=== PATIENT | female | born 1995 | race Caucasian/White ===

== ENCOUNTER 2018-11-02 04:29 | Emergency (ER) | payer BC, OTHER ==
--- NOTE | 2018-11-02 04:57 | ERPHSYRPT ---
- History of Present Illness Time Seen by Provider: 11/02/18 04:51 Source: patient, family Exam Limitations: no limitations Patient Subjective Stated Complaint: pt is alert and oriented. pt is ambulatory with a steady gait. pt comes in with c/o vomiting x2 since 329. pt is 14 weeks and states that she hasn't had any morning sickness for two weeks. this is the pt's first . pt denies bleeding, or abnormal vaginal discharge. pt states she did have abd pain earlier but hadn't had a bm in a couple days and drank and ensure and was able to have bm. pt skin pwd. pt breathing easily on the bed. pt does not appear to be in any disteress. Triage Nursing Assessment: see above Physician History: pt had morning sickness with vomiting today and mild pain after which resolved - nontender now no discharge, no further pain Timing/Duration: today Severity: mild Associated Symptoms: nausea, vomiting Allergies/Adverse Reactions: No Known Drug Allergies Allergy (Unverified 11/02/18 04:47) Home Medications: Metronidazole 500 mg [Flagyl 500 MG] 500 mg PO BID 11/02/18 [History] Vits W-Ca,Fe,FA(<1Mg) [] 1 tablet PO DAILY 11/02/18 [History] Immunizations Up to Date: Yes - Review of Systems Constitutional: No Fever, No Chills Eyes: No Symptoms Ears, Nose, & Throat: No Symptoms Respiratory: No Cough, No Dyspnea Cardiac: No Chest Pain, No Edema, No Syncope Abdominal/Gastrointestinal: Nausea, Vomiting, Other (brief pain resolved), No Diarrhea Genitourinary Symptoms: No Dysuria Musculoskeletal: No Back Pain, No Neck Pain Skin: No Rash Neurological: No Dizziness, No Focal Weakness, No Sensory Changes Psychological: No Symptoms Endocrine: No Symptoms Hematologic/Lymphatic: No Symptoms Immunological/Allergic: No Symptoms All Other Systems: Reviewed and Negative - Past Medical History Pertinent Past Medical History: Yes Neurological History: No Pertinent History, Epilepsy Cardiac History: No Pertinent History Respiratory History: No Pertinent History Endocrine Medical History: No Pertinent History Musculoskeletal History: No Pertinent History GI Medical History: Gallbladder Disease History: No Pertinent History Psycho-Social History: No Pertinent History Female Reproductive Disorders: No Pertinent History - Past Surgical History Past Surgical History: Yes Gastrointestinal: Cholecystectomy Other Surgical History: nose surgery - Social History Smoking Status: Never smoker Exposure to second hand smoke: No Drug Use: none - Female History Hx Now: Yes - Nursing Vital Signs Nursing Vital Signs: Initial Vital Signs Pulse Rate 63 11/02/18 04:38 Respiratory Rate 16 11/02/18 04:38 Blood Pressure 130/70 11/02/18 04:38 O2 Sat by Pulse Oximetry 99 11/02/18 04:38 - Physical Exam General Appearance: no apparent distress, alert Eye Exam: PERRL/EOMI, eyes nml inspection Ears, Nose, Throat Exam: normal ENT inspection, TMs normal, pharynx normal, moist mucous membranes Neck Exam: normal inspection, non-tender, supple, full range of motion Respiratory Exam: normal breath sounds, lungs clear, No respiratory distress Cardiovascular Exam: regular rate/rhythm, normal heart sounds, normal peripheral pulses Gastrointestinal/Abdomen Exam: soft, normal bowel sounds, No tenderness, No mass Back Exam: normal inspection, normal range of motion, No CVA tenderness, No vertebral tenderness Extremity Exam: normal inspection, normal range of motion, pelvis stable Neurologic Exam: alert, oriented x 3, cooperative, normal mood/affect, nml cerebellar function, nml station & gait, sensation nml, No motor deficits Skin Exam: normal color, warm, dry, No rash Lymphatic Exam: No adenopathy SpO2: 99 - Course Nursing assessment & vital signs reviewed: Yes Ordered Tests: Active Orders 24 hr Category Date Time Status Heart Tones-ED STAT Care 11/02/18 04:58 Active IV Insertion STAT Care 11/02/18 04:58 Active IV Insertion STAT Care 11/02/18 04:58 Active AMYLASE Stat Lab 11/02/18 05:00 Completed CBC W DIFF Stat Lab 11/02/18 05:00 Completed CMP Stat Lab 11/02/18 05:00 Completed HCG, Quantitative (Inhouse) Stat Lab 11/02/18 05:00 Completed LIPASE Stat Lab 11/02/18 05:00 Completed Lactic Acid Stat Lab 11/02/18 05:43 Completed UA W/RFX UR CULTURE Stat Lab 11/02/18 04:58 Ordered Medication Summary Discontinued Medications Generic Name Dose Route Start Last Admin Trade Name Freq PRN Reason Stop Dose Admin Sodium Chloride 1,000 mls @ 999 mls/hr 11/02/18 04:58 11/02/18 05:07 Sodium Chloride 0.9% 1000 Ml IV 11/02/18 05:58 999 mls/hr .Q1H1M STA Administration Sodium Chloride Confirm 11/02/18 05:03 Sodium Chloride 0.9% 1000 Ml Administered 11/02/18 05:04 Dose 1,000 mls @ ud .ROUTE .STK-MED ONE Ondansetron HCl 4 mg 11/02/18 05:01 11/02/18 05:13 Zofran 4 Mg/2 Ml Vial IV 11/02/18 05:02 4 mg STAT ONE Administration Ondansetron HCl Confirm 11/02/18 05:10 Zofran 4 Mg/2 Ml Vial Administered 11/02/18 05:11 Dose 4 mg .ROUTE .STK-MED ONE Lab/Rad Data: Laboratory Result Diagrams 11/02/18 05:00 11/02/18 05:00 Laboratory Results 11/02/18 11/02/18 11/02/18 Range/Units 05:43 05:00 05:00 WBC 15.3 H (4.0-10.5) K/mm3 RBC 4.37 (4.1-5.4) M/mm3 Hgb 13.3 (12.0-16.0) gm/dl Hct 38.8 (35-47) % MCV 88.8 (78-100) fl MCH 30.4 (26-32) pg MCHC 34.3 (32-36) g/dl RDW 12.9 (11.5-14.0) % Plt Count 316 (150-450) K/mm3 MPV 11.2 H (6-9.5) fl Gran % 83.6 H (36.0-66.0) % Eos # (Auto) 0.06 (0-0.5) Absolute Lymphs (auto) 1.38 (1.0-4.6) Absolute Monos (auto) 1.05 (0.0-1.3) Lymphocytes % 9.0 L (24.0-44.0) % Monocytes % 6.9 (0.0-12.0) % Eosinophils % 0.4 (0.00-5.0) % Basophils % 0.1 (0.0-0.4) % Absolute Granulocytes 12.76 H (1.4-6.9) Basophils # 0.01 (0-0.4) Sodium 138 (137-145) mmol/L Potassium 3.9 (3.5-5.1) mmol/L Chloride 105 (98-107) mmol/L Carbon Dioxide 23 (22-30) mmol/L Anion Gap 14.3 (5-15) MEQ/L BUN 4 L (7-17) mg/dL Creatinine 0.32 L (0.52-1.04) mg/dL Estimated GFR > 60.0 ML/MIN Glucose 82 (74-106) mg/dL Lactic Acid 1.3 (0.4-2.0) Calcium 9.3 (8.4-10.2) mg/dL Total Bilirubin 0.40 (0.2-1.3) mg/dL AST 64 H (14-36) U/L ALT 117 H (0-35) U/L Alkaline Phosphatase 71 (38-126) U/L Serum Total Protein 7.4 (6.3-8.2) g/dL Albumin 4.1 (3.5-5.0) g/dL Amylase 59 (30-110) U/L Lipase 22 L (23-300) U/L Beta HCG, Quant > 17228 mIU/ml - Progress Progress: improved, re-examined Progress Note: 11/02/18 06:26 FHT 163 11/02/18 06:33 pt symptoms have resolved - no abd pain or fever or signs of infection - discussed elevated wbc and liver tests with pt and she prefers DC with outpt f/ u with PCP rather than further obs or w/u in hosp - abd remains nontender. Counseled pt/family regarding: lab results, diagnosis, need for follow-up - Departure Departure Disposition: Home Clinical Impression: Hyperemesis arising during Condition: Good Critical Care Time: No Referrals: BRANDY DEMARCO [Primary Care Provider] - Instructions: Hyperemesis Gravidarum Additional Instructions: followup with your dr this week for elevated wbc and liver tests and return meantime if further problems vomiting, abdominal pain , fever, bleeding or other concerns. Prescriptions: Doxylamine Succinate/Vit B6 [Hallie Santamaria 10-10 mg Tablet] 2 each PO HS #14 tablet.
[2018-11-02] MEDS ORDERED: Sodium Chloride 0.9% 1000 ML 1,000 ML ONE (05:03)
[2018-11-02] MEDS: Sodium Chloride 0.9% 1000 ML 1,000 ML IV STA (05:07)
[2018-11-02] MEDS ORDERED: Zofran 4 MG/2 ML VIAL ONE (05:10)
[2018-11-02] MEDS: Zofran 4 MG/2 ML VIAL IV ONE (05:13)
[2018-11-02 05:40] LABS: BASOPHIL % 0.1 % (0.0-0.4); Basophil (Absolute #) 0.01 (0-0.4); Eosinophil % 0.4 % (0.00-5.0); Eosinophil (Absolute #) 0.06 (0-0.5); Granulocyte Absolute (ANC) 12.76 (1.4-6.9); Granulocytes % 83.6 % (36.0-66.0); Hematocrit 38.8 % (35-47); Hemoglobin 13.3 gm/dl (12.0-16.0); Lymphocyte (Absolute #) 1.38 (1.0-4.6); Mean Cell Volume 88.8 fl (78-100); Mean Corpuscular Hemoglobin 30.4 pg (26-32); Mean Corpuscular Hgb Concent. 34.3 g/dl (32-36); Mean Platelet Volume 11.2 fl (6-9.5); Monocyte (Absolute #) 1.05 (0.0-1.3); Monocytes % 6.9 % (0.0-12.0); Platelet Count 316 K/mm3 (150-450); Red Blood Count 4.37 M/mm3 (4.1-5.4); Red Cell Distribution Width 12.9 % (11.5-14.0); White Blood Count 15.3 K/mm3 (4.0-10.5)
[2018-11-02 06:09] LABS: ALBUMIN 4.1 g/dL (3.5-5.0); ALKALINE PHOSPHATASE 71 U/L (38-126); AMYLASE 59 U/L (30-110); ANION GAP 14.3 MEQ/L (5-15); BLOOD UREA NITROGEN 4 mg/dL (7-17); CHLORIDE 105 mmol/L (98-107); Calcium 9.3 mg/dL (8.4-10.2); Carbon Dioxide 23 mmol/L (22-30); Creatinine 1 0.32 mg/dL (0.52-1.04); Glucose 82 mg/dL (74-106); LIPASE 22 U/L (23-300); Potassium 3.9 mmol/L (3.5-5.1); SGOT/AST 64 U/L (14-36); SGPT/ALT 117 U/L (0-35); SODIUM 138 mmol/L (137-145); Total Protein 7.4 g/dL (6.3-8.2)
[2018-11-02 06:21] LABS: Appearance CLEAR (CLEAR); Bilirubin NEGATIVE (NEGATIVE); Blood NEGATIVE Ery/ul (0-5); Glucose NEGATIVE (NEGATIVE); Ketones NEGATIVE (NEGATIVE); Leukocyte Esterase NEGATIVE (NEGATIVE); Mucus SLIGHT /HPF (NEGATIVE); Nitrite NEGATIVE (NEGATIVE); Protein,Urine Dip NEGATIVE (Negative); Specific Gravity 1.014 (1.005-1.025); Urobilinogen NEGATIVE mg/dL (0-1)
[2018-11-02 06:51] LABS: HCG, Quantitative (Inhouse) 60875 mIU/ml
[2018-11-02 07:21] VITALS: BP 121/48; PULSE 70; O2SAT 100
== END 2018-11-02 07:00 | disposition home or self-care (01) ==
LOC: ED 04:29
DX: O21.0 Mild hyperemesis gravidarum (principal); Z3A.14 14 weeks gestation of pregnancy
CPT/HCPCS: 36000; 36415; 80053; 81001; 82150; 83605; 83690; 84702; 85025; 96360; 96374; 99284; J2405

== ENCOUNTER 2018-12-04 10:13 | Emergency (ER) | payer OTHER ==
[2018-12-04 10:25] VITALS: O2SAT 97
--- NOTE | 2018-12-04 10:41 | ERPHSYRPT ---
- History of Present Illness Time Seen by Provider: 12/04/18 10:37 Source: patient Exam Limitations: no limitations Patient Subjective Stated Complaint: Pt states "I started having some cramping yesterday and today I am pretty nauseated." Triage Nursing Assessment: Pt presented through the front and placed in room 7. Pt ambulates with an upright steady gait, able to speak in clear full sentences pt in no appaernt respiratory distress. Physician History: 23-year-old white female 1 per 0 Who states she is who had an ultrasound on November 12, 2018 at that time she was noted to be 15 weeks 6 days. She arrives with complaints that she was nauseous she's had a headache she states that she had some abdominal cramping yesterday none today she states she' s had some nausea today. She has no vaginal discharge or bleeding she has no abdominal cramping today. Past medical history includes gallbladder disease, stent epilepsy patient states that she is supposed to be worked up for an overactive thyroid. Past surgical history includes cholecystectomy and nose surgery. Social history denies tobacco alcohol or illicit drug use Timing/Duration: other (slight abdominal cramping at work yesterday today nausea and headache) Severity: mild Modifying Factors: Improves With: nothing Associated Symptoms: nausea, abdominal pain (slight abdominal cramping yesterdaynone today), No vomiting, No shortness of breath, No heartburn, No diaphoresis, No cough, No chills, No chest pain, No fever, No headaches, No loss of appetite, No malaise, No rash, No syncope, No seizure, No weakness Allergies/Adverse Reactions: No Known Drug Allergies Allergy (Verified 12/04/18 10:25) Home Medications: Vits W-Ca,Fe,FA(<1Mg) [] 1 tablet PO DAILY 11/02/18 [History] Cephalexin Mh 500 mg [Keflex 500 mg] 500 mg PO BID 12/04/18 [History] Hx Tetanus, Diphtheria Vaccination/Date Given: No Hx Influenza Vaccination/Date Given: Yes Hx Pneumococcal Vaccination/Date Given: No Immunizations Up to Date: Yes - Review of Systems Constitutional: No Fever, No Chills Eyes: No Symptoms Ears, Nose, & Throat: No Symptoms Respiratory: No Cough, No Dyspnea Cardiac: No Chest Pain, No Edema, No Syncope Abdominal/Gastrointestinal: Abdominal Pain (slight abdominal cramping yesterday none today), Nausea, No Vomiting, No Diarrhea, No Constipation, No Hematemesis, No Hematochezia, No Melena, No Dysphagia, No Appetite Changes Genitourinary Symptoms: No Dysuria Musculoskeletal: No Back Pain, No Neck Pain Skin: No Rash Neurological: Headache, No Dizziness, No Focal Weakness, No Gait Changes, No Irritability, No Lethargy, No Paralysis, No Parasthesia, No Seizure, No Sensory Changes, No Speech Changes, No Tics, No Tremors, No Vertigo Psychological: No Symptoms Endocrine: No Symptoms All Other Systems: Reviewed and Negative - Past Medical History Pertinent Past Medical History: Yes Neurological History: No Pertinent History, Epilepsy Cardiac History: No Pertinent History Respiratory History: No Pertinent History Endocrine Medical History: No Pertinent History Musculoskeletal History: No Pertinent History GI Medical History: Gallbladder Disease History: No Pertinent History Psycho-Social History: No Pertinent History Female Reproductive Disorders: No Pertinent History - Past Surgical History Past Surgical History: Yes Gastrointestinal: Cholecystectomy Other Surgical History: nose surgery - Social History Smoking Status: Never smoker Exposure to second hand smoke: No Drug Use: none Patient Lives Alone: No - Female History Hx Last Menstrual Period: 07/26/2018 Hx Now: Yes Expected Date of Delivery: 04/30/19 - Nursing Vital Signs Nursing Vital Signs: Initial Vital Signs Temperature 98.2 F 12/04/18 10:17 Pulse Rate 93 H 12/04/18 10:17 Respiratory Rate 18 12/04/18 10:17 Blood Pressure 150/70 12/04/18 10:17 O2 Sat by Pulse Oximetry 97 12/04/18 10:17 Pain Scale Pain Intensity 0 - Physical Exam General Appearance: no apparent distress, alert Eye Exam: PERRL/EOMI, eyes nml inspection Ears, Nose, Throat Exam: normal ENT inspection, TMs normal, pharynx normal, moist mucous membranes Neck Exam: normal inspection, non-tender, supple, full range of motion Respiratory Exam: normal breath sounds, lungs clear, No respiratory distress Cardiovascular Exam: regular rate/rhythm, normal heart sounds, normal peripheral pulses, capillary refill <2 sec Gastrointestinal/Abdomen Exam: soft, normal bowel sounds, other ( heart tones 148 per nurse), No tenderness, No mass Back Exam: normal inspection, normal range of motion, No CVA tenderness, No vertebral tenderness Extremity Exam: normal inspection, normal range of motion, pelvis stable, other (negative edema) Neurologic Exam: alert, oriented x 3, cooperative, 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 tested, normal mood/affect, nml cerebellar function, nml station & gait, sensation nml, other (DTRs two over four no clonus), No motor deficits Skin Exam: normal color, warm, dry, No rash Lymphatic Exam: No adenopathy SpO2 Interpretation: normal (9there's nothing7%), borderline oxygenation SpO2: 97 Ordered Tests: Active Orders 24 hr Category Date Time Status Heart Tones-ED STAT Care 12/04/18 10:36 Active 24HR URINE PROTEIN Stat Lab 12/04/18 Uncollected CBC W DIFF Stat Lab 12/04/18 10:55 Completed CMP Stat Lab 12/04/18 10:55 Completed TSH [TSH, 3RD Generation] Stat Lab 12/04/18 10:55 Completed UA W/RFX UR CULTURE Stat Lab 12/04/18 10:55 Completed Uric Acid Stat Lab 12/04/18 11:45 Ordered Lab/Rad Data: Laboratory Result Diagrams 12/04/18 10:55 12/04/18 10:55 Laboratory Results 12/04/18 12/04/18 12/04/18 Range/Units 10:55 10:55 10:55 WBC (4.0-10.5) K/mm3 RBC (4.1-5.4) M/mm3 Hgb (12.0-16.0) gm/dl Hct (35-47) % MCV (78-100) fl MCH (26-32) pg MCHC (32-36) g/dl RDW (11.5-14.0) % Plt Count (150-450) K/mm3 MPV (6-9.5) fl Gran % (36.0-66.0) % Eos # (Auto) (0-0.5) Absolute Lymphs (auto) (1.0-4.6) Absolute Monos (auto) (0.0-1.3) Lymphocytes % (24.0-44.0) % Monocytes % (0.0-12.0) % Eosinophils % (0.00-5.0) % Basophils % (0.0-0.4) % Absolute Granulocytes (1.4-6.9) Basophils # (0-0.4) Sodium (137-145) mmol/L Potassium (3.5-5.1) mmol/L Chloride (98-107) mmol/L Carbon Dioxide (22-30) mmol/L Anion Gap (5-15) MEQ/L BUN (7-17) mg/dL Creatinine (0.52-1.04) mg/dL Estimated GFR ML/MIN Glucose (74-106) mg/dL Calcium (8.4-10.2) mg/dL Total Bilirubin (0.2-1.3) mg/dL AST (14-36) U/L ALT (0-35) U/L Alkaline Phosphatase (38-126) U/L Serum Total Protein (6.3-8.2) g/dL Albumin (3.5-5.0) g/dL Free T4 0.93 (0.76-1.46) ng/dL TSH 3rd Generation 0.593 (0.47-4.68) mIU/L Urine Color STRAW (YELLOW) Urine Appearance CLEAR (CLEAR) Urine pH 9.0 (5-6) Ur Specific [place] 1.004 (1.005-1.025) Urine Protein NEGATIVE (Negative) Urine Ketones NEGATIVE (NEGATIVE) Urine Blood NEGATIVE (0-5) Abhilash/ul Urine Nitrite NEGATIVE (NEGATIVE) Urine Bilirubin NEGATIVE (NEGATIVE) Urine Urobilinogen NEGATIVE (0-1) mg/dL Ur Leukocyte Esterase NEGATIVE (NEGATIVE) Urine WBC (Auto) 0-2 (0-5) /HPF Urine RBC (Auto) NONE (0-2) /HPF U Epithel Cells (Auto) NONE (FEW) /HPF Urine Bacteria (Auto) NONE (NEGATIVE) /HPF Urine Culture Reflexed NO (NO) Urine Glucose NEGATIVE (NEGATIVE) mg/dL 12/04/18 12/04/18 Range/Units 10:55 10:55 WBC 11.2 H (4.0-10.5) K/mm3 RBC 3.87 L (4.1-5.4) M/mm3 Hgb 12.1 (12.0-16.0) gm/dl Hct 34.5 L (35-47) % MCV 89.1 (78-100) fl MCH 31.2 (26-32) pg MCHC 35.1 (32-36) g/dl RDW 12.9 (11.5-14.0) % Plt Count 292 (150-450) K/mm3 MPV 10.7 H (6-9.5) fl Gran % 79.4 H (36.0-66.0) % Eos # (Auto) 0.09 (0-0.5) Absolute Lymphs (auto) 1.54 (1.0-4.6) Absolute Monos (auto) 0.65 (0.0-1.3) Lymphocytes % 13.8 L (24.0-44.0) % Monocytes % 5.8 (0.0-12.0) % Eosinophils % 0.8 (0.00-5.0) % Basophils % 0.2 (0.0-0.4) % Absolute Granulocytes 8.90 H (1.4-6.9) Basophils # 0.02 (0-0.4) Sodium 137 (137-145) mmol/L Potassium 3.7 (3.5-5.1) mmol/L Chloride 104 (98-107) mmol/L Carbon Dioxide 24 (22-30) mmol/L Anion Gap 12.2 (5-15) MEQ/L BUN 4 L (7-17) mg/dL Creatinine 0.46 L (0.52-1.04) mg/dL Estimated GFR > 60.0 ML/MIN Glucose 91 (74-106) mg/dL Calcium 8.9 (8.4-10.2) mg/dL Total Bilirubin 0.30 (0.2-1.3) mg/dL AST 26 (14-36) U/L ALT 62 H (0-35) U/L Alkaline Phosphatase 54 (38-126) U/L Serum Total Protein 6.7 (6.3-8.2) g/dL Albumin 3.5 (3.5-5.0) g/dL Free T4 (0.76-1.46) ng/dL TSH 3rd Generation (0.47-4.68) mIU/L Urine Color (YELLOW) Urine Appearance (CLEAR) Urine pH (5-6) Ur Specific [place] (1.005-1.025) Urine Protein (Negative) Urine Ketones (NEGATIVE) Urine Blood (0-5) Abhilash/ul Urine Nitrite (NEGATIVE) Urine Bilirubin (NEGATIVE) Urine Urobilinogen (0-1) mg/dL Ur Leukocyte Esterase (NEGATIVE) Urine WBC (Auto) (0-5) /HPF Urine RBC (Auto) (0-2) /HPF U Epithel Cells (Auto) (FEW) /HPF Urine Bacteria (Auto) (NEGATIVE) /HPF Urine Culture Reflexed (NO) Urine Glucose (NEGATIVE) mg/dL - Progress Progress: improved Progress Note: 12/04/18 11:46 Patient's CBC chemistry urinalysis essentially normal. Blood pressure 116/55. Patient states she no longer has any complaints she is not nauseous she does not have a headache. Patient with no abdominal tenderness she has no edema no clonus. Discuss case with Dr. Goldman. She requested that we obtain a uric acid level on the patient and set the patient up for a 24 hour urine protein. She states that her office will contact the patient. . - Departure Departure Disposition: Home Clinical Impression: Nausea Headache Qualifiers: Headache type: unspecified Headache chronicity pattern: unspecified pattern Intractability: not intractable Qualified Code(s): R51 - Headache Qualifiers: Weeks of gestation: 19 weeks Qualified Code(s): Z3A.19 - 19 weeks gestation of Condition: Fair Critical Care Time: No Referrals: BRANDY GOLDMAN [Primary Care Provider] - Additional Instructions: Return home. Plenty of fluids. Clear fluids only 24-48 hours if nausea or vomiting. Tylenol every 4 hours as needed if headache. Followup with Dr. Goldman. Complete 24 hour urine protein as instructed. . return for acute distress or for severe symptoms
[2018-12-04 10:58] LABS: BASOPHIL % 0.2 % (0.0-0.4); Basophil (Absolute #) 0.02 (0-0.4); Eosinophil % 0.8 % (0.00-5.0); Eosinophil (Absolute #) 0.09 (0-0.5); Granulocytes % 79.4 % (36.0-66.0); Hematocrit 34.5 % (35-47); Hemoglobin 12.1 gm/dl (12.0-16.0); Lymphocyte (Absolute #) 1.54 (1.0-4.6); Lymphocytes % 13.8 % (24.0-44.0); Mean Cell Volume 89.1 fl (78-100); Mean Corpuscular Hgb Concent. 35.1 g/dl (32-36); Mean Platelet Volume 10.7 fl (6-9.5); Monocyte (Absolute #) 0.65 (0.0-1.3); Monocytes % 5.8 % (0.0-12.0); Platelet Count 292 K/mm3 (150-450); Red Blood Count 3.87 M/mm3 (4.1-5.4); Red Cell Distribution Width 12.9 % (11.5-14.0); White Blood Count 11.2 K/mm3 (4.0-10.5)
[2018-12-04 11:01] LABS: Mean Corpuscular Hemoglobin 31.2 pg (26-32)
[2018-12-04 11:09] LABS: ALBUMIN 3.5 g/dL (3.5-5.0); ALKALINE PHOSPHATASE 54 U/L (38-126); ANION GAP 12.2 MEQ/L (5-15); BLOOD UREA NITROGEN 4 mg/dL (7-17); CHLORIDE 104 mmol/L (98-107); Calcium 8.9 mg/dL (8.4-10.2); Carbon Dioxide 24 mmol/L (22-30); Creatinine 1 0.46 mg/dL (0.52-1.04); Glucose 91 mg/dL (74-106); Potassium 3.7 mmol/L (3.5-5.1); SGOT/AST 26 U/L (14-36); SGPT/ALT 62 U/L (0-35); SODIUM 137 mmol/L (137-145); Total Protein 6.7 g/dL (6.3-8.2)
[2018-12-04 11:38] LABS: Appearance CLEAR (CLEAR); Bilirubin NEGATIVE (NEGATIVE); Blood NEGATIVE Ery/ul (0-5); Glucose NEGATIVE (NEGATIVE); Ketones NEGATIVE (NEGATIVE); Leukocyte Esterase NEGATIVE (NEGATIVE); Nitrite NEGATIVE (NEGATIVE); Protein,Urine Dip NEGATIVE (Negative); Specific Gravity 1.004 (1.005-1.025); Urobilinogen NEGATIVE mg/dL (0-1); WBC 0-2 /HPF (0-5)
[2018-12-04 11:53] VITALS: BP 116/55; PULSE 80
== END 2018-12-04 12:09 | disposition home or self-care (01) ==
LOC: ED 10:13
DX: O26.892 Other specified pregnancy related conditions, second trimester (principal); R11.0 Nausea; R51 Headache; R10.9 Unspecified abdominal pain; Z3A.19 19 weeks gestation of pregnancy
CPT/HCPCS: 36415; 80053; 81001; 84439; 84443; 84550; 85025; 99284

== ENCOUNTER 2019-05-04 07:40 | Inpatient (IN) | payer OTHER ==
[2019-05-04] MEDS ORDERED: BRETHINE 1 MG/ML SQ PRN (09:44)
[2019-05-04] MEDS ORDERED: XYLOCAINE 1% HCL 20 ML MDV IJ PRN (12:02)
[2019-05-04 12:20] LABS: Absolute Neutrophil Ct (ANC) 9.17 (1.4-6.9); BASOPHIL % 0.1 % (0.0-0.4); Basophil (Absolute #) 0.01 (0-0.4); Eosinophil % 0.4 % (0.00-5.0); Eosinophil (Absolute #) 0.04 (0-0.5); Hemoglobin 11.4 gm/dl (12.0-16.0); Lymphocyte (Absolute #) 1.45 (1.0-4.6); Lymphocytes % 12.8 % (24.0-44.0); Mean Cell Volume 88.5 fl (78-100); Mean Corpuscular Hemoglobin 29.7 pg (26-32); Mean Corpuscular Hgb Concent. 33.5 g/dl (32-36); Monocyte (Absolute #) 0.68 (0.0-1.3); Neutrophil % 80.7 % (36.0-66.0); Platelet Count 305 K/mm3 (150-450); Red Blood Count 3.84 M/mm3 (4.1-5.4); Red Cell Distribution Width 13.1 % (11.5-14.0); White Blood Count 11.4 K/mm3 (4.0-10.5)
[2019-05-04] MEDS ORDERED: PITOCIN 30 UNITS/ LR 500 ML 500 ML IV SCH ×2 (12:30→23:30)
[2019-05-04 13:09] LABS: Amphetamine,Urine NEGATIVE (NEGATIVE); Barbiturate,Urine NEGATIVE (NEGATIVE); Benzodiazepine,Urine NEGATIVE (NEGATIVE); Cocaine,Urine NEGATIVE (NEGATIVE); Methadone,Urine NEGATIVE (NEGATIVE); Opiate,Urine NEGATIVE (NEGATIVE); PCP,Urine NEGATIVE (NEGATIVE); THC,Urine NEGATIVE (NEGATIVE)
[2019-05-04] MEDS: Lactated Ringers 1,000 ML IV SCH (19:43)
[2019-05-04] MEDS ORDERED: Cervidil 10 MG VAG SCH (22:00)
[2019-05-04] MEDS ORDERED: Lactated Ringers 1,000 ML IV SCH (23:30)
[2019-05-05] MEDS: Lactated Ringers 1,000 ML IV SCH ×4 (03:48→11:00)
--- NOTE | 2019-05-05 07:50 | PCM.HP.ADD ---
Addendum to History & Physical - History & Physical Addendum Addendum to History & Physical: This certifies that the History & Physical in the electronic chart reflects the current health status of the patient. If there are changes in the H&P these changes/exceptions are listed as follows.
[2019-05-05] MEDS ORDERED: Zofran 4 MG/2 ML VIAL IV PRN ×2 (08:32→17:39)
[2019-05-05] MEDS ORDERED: Lactated Ringers 1,000 ML IV ONE ×2 (10:17→17:39)
[2019-05-05] MEDS ORDERED: Ephedrine Sulfate 50 MG/ML IV PRN (10:17)
[2019-05-05] MEDS ORDERED: OB EPIDURAL NAROPIN/SUFENTANIL IN NACL EPIDURAL PRN (10:17)
[2019-05-05] MEDS ORDERED: Sensorcaine 0.25% 10 ML ONE (16:33)
[2019-05-05] MEDS ORDERED: CLARITIN 10 MG PO PRN (17:39)
[2019-05-05] MEDS ORDERED: HOLD NARCOTIC ANALGESICS AND SEDATIVES X24 HR MC PRN (17:39)
[2019-05-05] MEDS ORDERED: DEMEROL 50 MG IV PRN (17:39)
[2019-05-05] MEDS ORDERED: Nubain 10 MG/ML IV PRN (17:39)
[2019-05-05] MEDS ORDERED: MORPHINE SULFATE 2 MG INJ IV PRN (17:39)
[2019-05-05] MEDS ORDERED: BENADRYL 50 MG/ML IV PRN (17:39)
[2019-05-05] MEDS ORDERED: Narcan 0.4 MG/ML IV PRN (17:39)
[2019-05-05] MEDS ORDERED: Sodium Chloride 0.9% 10 ML FLUSH Syringe IJ PRN (17:39)
[2019-05-05] MEDS ORDERED: Reglan 10 MG/2 ML IV SCH ×2 (17:45)
[2019-05-05] MEDS ORDERED: BICITRA 30 ML CUP PO SCH ×2 (17:45)
[2019-05-05] MEDS ORDERED: Pepcid 20 MG VIAL IV SCH ×2 (17:45)
[2019-05-05] MEDS ORDERED: CEFAZOLIN 2 GM-D5W BAG** 2 GM/50 ML ML IV SCH (18:00)
[2019-05-05 18:30] LABS: Hematocrit 35.6 % (35-47); Hemoglobin 11.8 gm/dl (12.0-16.0); Mean Corpuscular Hemoglobin 29.5 pg (26-32); Mean Corpuscular Hgb Concent. 33.1 g/dl (32-36); Mean Platelet Volume 11.1 fl (6-9.5); Platelet Count 275 K/mm3 (150-450); Red Cell Distribution Width 13.2 % (11.5-14.0)
[2019-05-05 18:33] LABS: INR 0.96 (0.8-3.0); PROTIME 10.8 SECONDS (9.95-12.35)
[2019-05-05 18:36] LABS: PTT 25.6 SECONDS (25.3-37.0)
[2019-05-05] MEDS ORDERED: Pitocin 10 UNITS/ML ONE ×2 (18:48→19:45)
[2019-05-05] MEDS ORDERED: Astramorph-Pf 5 MG/10 ML ONE (18:49)
[2019-05-05] MEDS ORDERED: KEFZOL 1 GM/50 ML PREMIX** 1 GM/50 ML IVPB IV ONE (18:49)
[2019-05-05] MEDS ORDERED: PHENYLEPHRINE HCL ONE (18:52)
[2019-05-05] MEDS ORDERED: Marcaine 0.5%/Epinephrine 10 ML ONE (19:52)
[2019-05-05] MEDS ORDERED: MARCAINE 0.5%-EPI 1:200,000 VL IJ ONE (19:52)
[2019-05-05 20:10] LABS: Appearance CLEAR (CLEAR); Bilirubin NEGATIVE (NEGATIVE); Blood MODERATE Ery/ul (0-5); Glucose NEGATIVE (NEGATIVE); Ketones SMALL (NEGATIVE); Leukocyte Esterase NEGATIVE (NEGATIVE); Mucus SLIGHT /HPF (NEGATIVE); Nitrite NEGATIVE (NEGATIVE); Protein,Urine Dip NEGATIVE (Negative); RBC >101 /HPF (0-2); Specific Gravity 1.019 (1.005-1.025); Urobilinogen 2 mg/dL (0-1); WBC 0-2 /HPF (0-5)
[2019-05-05 21:59] LABS: Appearance SLIGHTLY CLOUDY (CLEAR); Bacteria RARE /HPF (NEGATIVE); Bilirubin NEGATIVE (NEGATIVE); Blood LARGE Ery/ul (0-5); Epithelial Cells RARE /HPF (FEW); Glucose NEGATIVE (NEGATIVE); Ketones MODERATE (NEGATIVE); Leukocyte Esterase SMALL (NEGATIVE); Mucus SLIGHT /HPF (NEGATIVE); Nitrite NEGATIVE (NEGATIVE); Non-Squamous Epithelial Cells RARE /HPF (FEW); Protein,Urine Dip 100 (Negative); Specific Gravity 1.012 (1.005-1.025); Urobilinogen NEGATIVE mg/dL (0-1); WBC 26-50 /HPF (0-5)
[2019-05-05 22:02] LABS: RBC >101 /HPF (0-2)
[2019-05-05] MEDS ORDERED: Dextrose 5%-Lr IV Solution 1000 ML 1,000 ML IV ONE (22:32)
[2019-05-05] MEDS ORDERED: Phenergan 25 MG INJ IM PRN (22:36)
[2019-05-05] MEDS ORDERED: Ambien 10 MG PO PRN (22:39)
[2019-05-05] MEDS ORDERED: Mylicon 80MG PO PRN (22:39)
[2019-05-05] MEDS ORDERED: TUCKS TP PRN (22:39)
[2019-05-05] MEDS ORDERED: CORTISONE 1% CREAM TP PRN (22:39)
[2019-05-05] MEDS ORDERED: Restoril 15 MG PO PRN (22:39)
[2019-05-05] MEDS ORDERED: TYLENOL EXTRA STRENGTH 500 MG PO PRN (22:39)
[2019-05-05] MEDS ORDERED: Dermoplast Spray TP PRN (22:39)
[2019-05-05] MEDS ORDERED: LANSINOH 40 GM TOP PRN (22:39)
[2019-05-05] MEDS: Dextrose 5%-Lr IV Solution 1000 ML 1,000 ML IV SCH (22:46)
[2019-05-06 05:13] LABS: Absolute Neutrophil Ct (ANC) 15.39 (1.4-6.9); BASOPHIL % 0.1 % (0.0-0.4); Basophil (Absolute #) 0.01 (0-0.4); Eosinophil % 0.1 % (0.00-5.0); Eosinophil (Absolute #) 0.02 (0-0.5); Hematocrit 34.1 % (35-47); Hemoglobin 11.1 gm/dl (12.0-16.0); Lymphocyte (Absolute #) 1.35 (1.0-4.6); Lymphocytes % 7.6 % (24.0-44.0); Mean Corpuscular Hgb Concent. 32.6 g/dl (32-36); Mean Platelet Volume 11.4 fl (6-9.5); Monocyte (Absolute #) 0.96 (0.0-1.3); Monocytes % 5.4 % (0.0-12.0); Neutrophil % 86.8 % (36.0-66.0); Platelet Count 290 K/mm3 (150-450); Red Blood Count 3.83 M/mm3 (4.1-5.4); Red Cell Distribution Width 13.2 % (11.5-14.0); White Blood Count 17.7 K/mm3 (4.0-10.5)
[2019-05-06] MEDS: MOTRIN 400 MG PO PRN ×3 (05:48→19:21)
[2019-05-06 06:01] LABS: Slide Review 1 YES
[2019-05-06] MEDS: Dextrose 5%-Lr IV Solution 1000 ML 1,000 ML IV SCH ×2 (08:20→16:12)
[2019-05-06] MEDS: PERCOCET TABLET 5/325MG PO PRN ×3 (08:27→19:18)
--- NOTE | 2019-05-06 08:30 | PCM.NOTE ---
Date and Time: 05/06/19827 Subjective Assessment: She is doing well with her pain meds. Bleeding is light. . Annika po. Objective Exam General Appearance: no apparent distress, alert Neurologic Exam: oriented x 3, cooperative Skin Exam: normal color, warm, dry, No rash Respiratory Exam: normal breath sounds, lungs clear, No crackles/rales, No rhonchi, No wheezing Cardiovascular Exam: regular rate/rhythm, normal heart sounds, No murmur Gastrointestinal/Abdomen Exam: soft, normal bowel sounds, other (bandage c/d/i. fundus firming under umbilicus) Extremity Exam: normal inspection (SCDs in place), No pedal edema Back Exam: normal inspection, No rash OBJECTIVE DATA Vital Signs: Vital Signs - 24 hr Temp Pulse Resp BP BP Pulse Ox 05/06/19 07:00 99 05/06/19 06:00 97 05/06/19 05:00 98 05/06/19 04:00 99 05/06/19 03:00 96 05/06/19 02:00 98.2 F 90 20 106/55 96 05/06/19 01:00 96 05/06/19 00:00 97 05/05/19 23:15 98.1 F 109 H 20 117/63 97 05/05/19 23:00 97 05/05/19 22:15 98.6 F 105 H 18 103/56 96 05/05/19 22:00 96 05/05/19 21:15 98.4 F 107 H 20 124/56 97 05/05/19 21:00 97.9 F 107 H 20 134/66 98 05/05/19 19:00 97.5 F 110 H 20 124/61 05/05/19 18:48 97.5 F 05/05/19 18:45 97.5 F 111 H 20 133/66 05/05/19 18:30 97.5 F 110 H 20 131/75 05/05/19 18:17 97.9 F 108 H 22 139/85 05/05/19 18:15 97.5 F 108 H 20 139/85 05/05/19 18:00 97.5 F 100 H 20 135/77 05/05/19 17:45 97.5 F 111 H 22 145/66 05/05/19 17:30 97.5 F 113 H 143/84 05/05/19 17:15 97.5 F 122 H 20 146/92 05/05/19 17:00 97.5 F 120 H 148/89 05/05/19 16:45 97.5 F 20 151/85 05/05/19 16:30 97.5 F 114 H 20 149/86 05/05/19 16:15 97.5 F 114 H 22 142/82 05/05/19 16:00 97.5 F 109 H 22 129/71 05/05/19 15:45 97.5 F 105 H 134/65 05/05/19 15:30 97.9 F 105 H 18 134/65 05/05/19 15:15 97.9 F 117 H 18 133/58 05/05/19 15:00 97.9 F 113 H 18 153/82 05/05/19 14:45 97.9 F 111 H 18 132/72 05/05/19 14:30 97.5 F 108 H 131/79 05/05/19 14:15 97.5 F 100 H 108/56 05/05/19 14:00 97.5 F 100 H 18 130/83 05/05/19 13:45 97.5 F 76 18 114/63 05/05/19 13:30 97.5 F 65 18 116/74 05/05/19 13:15 97.5 F 71 116/57 05/05/19 13:00 97.9 F 73 18 108/58 05/05/19 12:45 97.9 F 88 18 104/69 05/05/19 12:30 97.9 F 69 18 111/61 05/05/19 12:15 97.9 F 87 18 120/72 100 05/05/19 12:00 97.9 F 85 18 127/71 100 05/05/19 11:45 97.9 F 81 20 112/65 99 05/05/19 11:30 97.9 F 90 20 117/73 99 05/05/19 11:15 100 H 20 122/81 100 05/05/19 11:00 92 H 20 131/74 100 05/05/19 10:45 100 H 20 117/67 99 05/05/19 10:30 108 H 20 130/73 94 L 05/05/19 10:15 99 H 20 146/75 05/05/19 10:00 93 H 20 131/74 05/05/19 09:45 84 20 133/70 05/05/19 09:30 84 20 137/77 05/05/19 09:15 82 20 130/71 05/05/19 09:00 85 20 132/74 05/05/19 08:45 85 20 137/75 05/05/19 08:30 101 H 20 137/74 Pain Assessment - Last Documented Pain Intensity [Medial] 0 Pain Intensity 1 Pain Scale Used 0-10 Pain Scale Intake and Output: Intake & Output 05/03/19 05/04/19 05/05/19 05/06/19 11:59 11:59 11:59 11:59 Intake Total 5588 3781 Output Total 200 2150 Balance 5388 1631 Weight 99.79 kg 99.79 kg Lab Results: Lab Results-Last 24 Hours 05/05/19 05/05/19 05/05/19 Range/Units 18:25 18:25 19:20 WBC 22.0 H (4.0-10.5) K/mm3 RBC 4.00 L (4.1-5.4) M/mm3 Hgb 11.8 L (12.0-16.0) gm/dl Hct 35.6 (35-47) % MCV 89.0 (78-100) fl MCH 29.5 (26-32) pg MCHC 33.1 (32-36) g/dl RDW 13.2 (11.5-14.0) % Plt Count 275 (150-450) K/mm3 MPV 11.1 H (6-9.5) fl Gran % (36.0-66.0) % Eos # (Auto) (0-0.5) Absolute Lymphs (auto) (1.0-4.6) Absolute Monos (auto) (0.0-1.3) Lymphocytes % (24.0-44.0) % Monocytes % (0.0-12.0) % Eosinophils % (0.00-5.0) % Basophils % (0.0-0.4) % Absolute Granulocytes (1.4-6.9) Basophils # (0-0.4) PT 10.8 (9.95-12.35) SECONDS INR 0.96 (0.8-3.0) APTT 25.6 (25.3-37.0) SECONDS Urine Color YELLOW (YELLOW) Urine Appearance SLIGHTLY CLOUDY (CLEAR) Urine pH 7.0 (5-6) Ur Specific [place] 1.012 (1.005-1.025) Urine Protein 100 (Negative) Urine Ketones MODERATE (NEGATIVE) Urine Blood LARGE (0-5) Abhilash/ul Urine Nitrite NEGATIVE (NEGATIVE) Urine Bilirubin NEGATIVE (NEGATIVE) Urine Urobilinogen NEGATIVE (0-1) mg/dL Ur Leukocyte Esterase SMALL (NEGATIVE) Urine WBC (Auto) 26-50 (0-5) /HPF Urine RBC (Auto) >101 (0-2) /HPF U Epithel Cells (Auto) RARE (FEW) /HPF Urine Bacteria (Auto) RARE (NEGATIVE) /HPF U Non-Squamous Epi Cells RARE (FEW) /HPF Urine Mucus (Auto) SLIGHT (NEGATIVE) /HPF Urine Culture Reflexed (NO) Urine Glucose NEGATIVE (NEGATIVE) mg/dL Slides for Path Review 05/05/19 05/06/19 Range/Units Unknown 04:22 WBC 17.7 H (4.0-10.5) K/mm3 RBC 3.83 L (4.1-5.4) M/mm3 Hgb 11.1 L (12.0-16.0) gm/dl Hct 34.1 L (35-47) % MCV 89.0 (78-100) fl MCH 29.0 (26-32) pg MCHC 32.6 (32-36) g/dl RDW 13.2 (11.5-14.0) % Plt Count 290 (150-450) K/mm3 MPV 11.4 H (6-9.5) fl Gran % 86.8 H (36.0-66.0) % Eos # (Auto) 0.02 (0-0.5) Absolute Lymphs (auto) 1.35 (1.0-4.6) Absolute Monos (auto) 0.96 (0.0-1.3) Lymphocytes % 7.6 L (24.0-44.0) % Monocytes % 5.4 (0.0-12.0) % Eosinophils % 0.1 (0.00-5.0) % Basophils % 0.1 (0.0-0.4) % Absolute Granulocytes 15.39 H (1.4-6.9) Basophils # 0.01 (0-0.4) PT (9.95-12.35) SECONDS INR (0.8-3.0) APTT (25.3-37.0) SECONDS Urine Color YELLOW (YELLOW) Urine Appearance CLEAR (CLEAR) Urine pH 7.0 (5-6) Ur Specific [place] 1.019 (1.005-1.025) Urine Protein NEGATIVE (Negative) Urine Ketones SMALL (NEGATIVE) Urine Blood MODERATE (0-5) Abhilash/ul Urine Nitrite NEGATIVE (NEGATIVE) Urine Bilirubin NEGATIVE (NEGATIVE) Urine Urobilinogen 2 (0-1) mg/dL Ur Leukocyte Esterase NEGATIVE (NEGATIVE) Urine WBC (Auto) 0-2 (0-5) /HPF Urine RBC (Auto) >101 (0-2) /HPF U Epithel Cells (Auto) NONE (FEW) /HPF Urine Bacteria (Auto) NONE (NEGATIVE) /HPF U Non-Squamous Epi Cells (FEW) /HPF Urine Mucus (Auto) SLIGHT (NEGATIVE) /HPF Urine Culture Reflexed NO (NO) Urine Glucose NEGATIVE (NEGATIVE) mg/dL Slides for Path Review YES Multi-Disciplinary Progress Notes: Multi-Disciplinary Progress Notes 05/05/19 19:42 (created 05/05/19 20:26) Respiratory Note by KamalaAlley Baby delivered at 1942 with meconium present all over the baby. Baby was brought to the warmer lethargic and was suctioned with a delee 1 ml obtained brown thick fluid. Baby then given PPV with 100% O2 for approximately 1 minute. Baby began crying and pinked up. Initialized on 05/05/19 20:26 - END OF NOTE Assessment/Plan (1) delivery delivered Current Visit: Yes Status: Acute Assessment & Plan: POD #1, doing great. Code(s): O82 - ENCOUNTER FOR DELIVERY WITHOUT INDICATION (2) Anemia Current Visit: Yes Status: Acute Qualifiers: Anemia type: iron deficiency Iron deficiency anemia type: unspecified iron deficiency Qualified Code(s): D50.9 - Iron deficiency anemia, unspecified Assessment & Plan: Her hgb only dropped from 11.4 to 11.1 overnight. Code(s): D64.9 - ANEMIA, UNSPECIFIED
--- NOTE | 2019-05-06 09:43 | OP ---
SURGERY DATE/TIME: 05/05/20191909 PREOPERATIVE DIAGNOSIS: Failure to progress in labor. POSTOPERATIVE DIAGNOSIS: Failure to progress in labor. PROCEDURE: Primary low transverse section. SURGEON: Clinton Valdivia M.D. ANESTHESIA: Spinal but Tramaine Suarez CRNA. ESTIMATED BLOOD LOSS: 400 cc. IV FLUIDS: 1500 ml of crystalloid. URINE OUTPUT: 100 cc clear straw-colored urine. SPECIMEN: Placenta was sent for pathology. HISTORY: The patient is a patient of Dr. Goldman who was admitted for induction of labor. She progressed to full dilatation, pushed for nearly three hours and unable to deliver vaginally so she was taken to the operating room for failure to progress. DESCRIPTION OF PROCEDURE: After informed, written consent was obtained, she was taken to the OR. She had a spinal placed and then was prepped and draped in the usual sterile fashion. After adequate level of anesthesia was assessed, a low transverse skin incision was made by knife and carried down through the subcutaneous fat to the level of the fascia. The fascia was nicked on both sides of the midline and extended horizontal fashion using curved Calle scissors. Superior free edge of the fascia was grasped with Jose clamps. The underlying rectus muscles were resected free. The same was repeated inferiorly. The peritoneal cavity was bluntly opened and extended in horizontal fashion. A bladder flap was created and reflected over the lower uterine segment. Horizontal uterine incision was made and carried down to the level of the amniotic membranes which were artificially ruptured and showed gross thick meconium stained fluid. A viable male was delivered from the vertex presentation with some difficulty deep in the pelvis with significant caput. There was loose nuchal cord which was reduced. The cord was clamped and cut and then Dr. Goldman robed/scrubbed to attend to the . The placenta was manually extracted and the uterus was exteriorized. The uterine cavity was sponge curetted clean with a lap sponge and then the uterine incision was closed with #1 chromic in a running locked fashion with good closure and good hemostasis where achieved. There was extension in the right aspect of the incision which extended inferiorly which was closed with 0 Vicryl with good closure and good hemostasis. Posterior cul-de-sac was wiped free of blood and clot with moist lap sponge and the uterus was returned to the peritoneal cavity. Lateral gutters were wiped free of blood and clot. Again, the entire uterine incision was inspected and noted to have good closure and good hemostasis. Next, the fascia was closed with 0 Vicryl in running fashion. Good closure and good hemostasis were achieved. Subcutaneous fat was irrigated with warm, sterile saline and any areas of bleeding were then cauterized with electrocautery. Finally the skin layer was closed with 4-0 undyed Vicryl in running subcuticular fashion. Steri-Strips and occlusive dressing were placed over the incision. She was transferred to the recovery room in good condition.
[2019-05-06] MEDS: Colace 100 MG PO SCH ×2 (10:14→22:59)
[2019-05-06] MEDS: FERREX 150 PO SCH (10:14)
[2019-05-06] MEDS: NORCO 5/325 MG PO PRN (22:59)
[2019-05-07] MEDS: MOTRIN 400 MG PO PRN ×4 (01:40→20:10)
[2019-05-07 02:58] VITALS: O2SAT 98
[2019-05-07] MEDS: NORCO 5/325 MG PO PRN ×4 (04:19→20:11)
[2019-05-07 04:54] LABS: Absolute Neutrophil Ct (ANC) 12.34 (1.4-6.9); BASOPHIL % 0.1 % (0.0-0.4); Basophil (Absolute #) 0.02 (0-0.4); Eosinophil % 0.7 % (0.00-5.0); Eosinophil (Absolute #) 0.11 (0-0.5); Hematocrit 30.2 % (35-47); Hemoglobin 9.6 gm/dl (12.0-16.0); Lymphocyte (Absolute #) 1.48 (1.0-4.6); Mean Corpuscular Hemoglobin 28.9 pg (26-32); Mean Corpuscular Hgb Concent. 31.8 g/dl (32-36); Monocyte (Absolute #) 0.87 (0.0-1.3); Monocytes % 5.9 % (0.0-12.0); Neutrophil % 83.3 % (36.0-66.0); Platelet Count 278 K/mm3 (150-450); Red Blood Count 3.32 M/mm3 (4.1-5.4); Red Cell Distribution Width 13.5 % (11.5-14.0); White Blood Count 14.8 K/mm3 (4.0-10.5)
[2019-05-07] MEDS: FERREX 150 PO SCH (09:17)
[2019-05-07] MEDS: Colace 100 MG PO SCH ×2 (09:17→20:11)
--- NOTE | 2019-05-07 10:05 | PCM.DS ---
Discharge Summary Date of Admission: 05/05/19 07:40 Admitting Physician: BRANDY DEMARCO Consults: Consults on Case 05/05/19 17:40 Notify Anesthesia Provider PRN Notify Anesthesia Provider ROUTINE Notify Physician OF ADMISSION Primary Care Provider: BRANDY DEMARCO Allergies Allergies No Known Drug Allergies Allergy (Verified 05/04/19 10:10) Hospital Summary - Hospital Course Hospital Course: had primary on 05/05 for arrest of descent, doing well with mild lochia and tolerating po with good pain control. no problems or concerns postoperatively - Vitals & Intake/Output Vital Signs: Vital Signs Temperature 98.4 F 05/07/19 09:10 Pulse Rate 78 05/07/19 09:10 Respiratory Rate 18 05/07/19 09:10 Blood Pressure 120/62 05/07/19 09:10 O2 Sat by Pulse Oximetry 98 05/07/19 02:00 Intake & Output: Intake & Output 05/04/19 05/05/19 05/06/19 05/07/19 11:59 11:59 11:59 11:59 Intake Total 5588 3781 2836 Output Total 200 2150 2800 Balance 5388 1631 36 Weight 99.79 kg 99.79 kg - Lab Result Diagrams: 05/07/19 04:47 Lab Results-Last 24 Hrs: Lab Results-Last 24 Hours 05/07/19 Range/Units 04:47 WBC 14.8 H (4.0-10.5) K/mm3 RBC 3.32 L (4.1-5.4) M/mm3 Hgb 9.6 L (12.0-16.0) gm/dl Hct 30.2 L (35-47) % MCV 91.0 (78-100) fl MCH 28.9 (26-32) pg MCHC 31.8 L (32-36) g/dl RDW 13.5 (11.5-14.0) % Plt Count 278 (150-450) K/mm3 MPV 11.0 H (6-9.5) fl Gran % 83.3 H (36.0-66.0) % Eos # (Auto) 0.11 (0-0.5) Absolute Lymphs (auto) 1.48 (1.0-4.6) Absolute Monos (auto) 0.87 (0.0-1.3) Lymphocytes % 10.0 L (24.0-44.0) % Monocytes % 5.9 (0.0-12.0) % Eosinophils % 0.7 (0.00-5.0) % Basophils % 0.1 (0.0-0.4) % Absolute Granulocytes 12.34 H (1.4-6.9) Basophils # 0.02 (0-0.4) Micro Results-Entire Visit: Microbiology 05/05/19 17:10 Urine Culture - Preliminary Catherized NO GROWTH TO DATE - Procedures and Test Procedures and Tests throughout Hospitalization: Therapy Orders & Screens 05/05/19 20:34 Standby STAT Comment: Diagnosis: Term Discharge Exam General Appearance: no apparent distress, alert Neurologic Exam: alert, oriented x 3 Respiratory Exam: normal breath sounds, lungs clear, No respiratory distress Cardiovascular Exam: regular rate/rhythm, normal heart sounds Gastrointestinal/Abdomen Exam: soft, other (incision clean, dry, intact) Extremity Exam: normal inspection, normal range of motion Final Diagnosis/Problem List - Final Discharge Diagnosis/Problem (1) delivery delivered Current Visit: Yes Status: Acute Code(s): O82 - ENCOUNTER FOR DELIVERY WITHOUT INDICATION (2) () Current Visit: Yes Status: Acute Code(s): Z78.9 - OTHER SPECIFIED HEALTH STATUS - Discharge Disposition: Home, Self-Care Condition: Stable Prescriptions: New Docusate Sodium 100 mg [Colace 100 MG] 100 mg PO BID #60 cap Ferrous Fumarate [Ferrocite] 324 mg PO DAILY #30 tablet Hydrocodone/APAP 5-325 Tab^^^ [[place] 5-325 Tablet^^^] 1 tab PO Q6HPRN PRN # 28 tablet MDD 6 PRN Reason: Pain Continue Vits W-Ca,Fe,FA(<1Mg) [] 1 tablet PO DAILY Follow up with: BRANDY DEMARCO [Primary Care Provider] - 1 Week
[2019-05-07 22:28] VITALS: BP 127/60; PULSE 94
== END 2019-05-07 21:00 | disposition home or self-care (01) | DRG 788 ==
LOC: OB 07:40 → OBSVTOIN 05-05 07:40
PROVIDERS: ADMIT Family Medicine; ATTEND Family Medicine
PROC: 10D00Z1 Extraction of Products of Conception, Low, Open Approach (ICD-10-PCS; principal; 2019-05-05)
DX: O61.0 Failed medical induction of labor (principal); Z3A.40 40 weeks gestation of pregnancy; Z37.0 Single live birth
CPT/HCPCS: 36415; 62322; 64488; 76937; 76942; 80307; 81001; 81003; 85025; 85027; 85610; 85730; 87086; 88307; 94799; G0378; J0690; J2274; J2370; J2405; J2590; J2795; L0625; A9270-GY